=== PATIENT | female | born 1970 | race Hispanic/Latino ===

== ENCOUNTER → 2021-02-07 | Day surgery (SDC) | payer BC, OTHER ==
[2021-02-07 14:07] VITALS: BP 110/62
== END | disposition home or self-care (01) ==
LOC: OR 11:04 → EDSEX 13:00
PROVIDERS: ATTEND Internal Medicine Gastroenterology
DX: Z12.11 Encounter for screening for malignant neoplasm of colon (principal); K64.8 Other hemorrhoids; K21.9 Gastro-esophageal reflux disease without esophagitis; D64.9 Anemia, unspecified; I45.10 Unspecified right bundle-branch block; K62.3 Rectal prolapse; Z01.810 Encounter for preprocedural cardiovascular examination; Z01.812 Encounter for preprocedural laboratory examination; Z20.822 Contact with and (suspected) exposure to COVID-19; Z68.25 Body mass index [BMI] 25.0-25.9, adult
CPT/HCPCS: 45378; 81025; 93005; U0002